=== PATIENT | male | born 1960 | race Caucasian/White ===

== ENCOUNTER → 2016-12-28 | Outpatient (REF) | payer OTHER | LOC: M LAB REF 16:15 | PROVIDERS: ATTEND Nurse Practitioner Adult Health | DX: R10.2 Pelvic and perineal pain (principal) ==

== ENCOUNTER → 2017-01-28 | Outpatient (REF) | payer OTHER | LOC: M LAB REF 12:37 | PROVIDERS: ATTEND Nurse Practitioner Adult Health | DX: R10.2 Pelvic and perineal pain (principal) ==

== ENCOUNTER → 2017-01-28 | Outpatient (REF) | payer OTHER ==
[2017-01-28 14:08] LABS: BASO % 0.2 % (0.0-1.0); EOS # 0.1 10^3/uL (0.0-0.50); EOS % 2.7 % (0.0-3.0); IMMATURE GRANULOCYTE % 0.2 % (0-0); LYMPH # 0.9 10^3/uL (1.5-4.5); LYMPH % 16.8 % (24.0-44.0); MEAN CORPUSCULAR HGB CONC 35.3 g/dl (32.0-36.5); MONO # 0.6 10^3/uL (0.0-0.8); MONO % 11.7 % (0.0-5.0); NEUTROPHILS # 3.6 10^3/uL (1.8-7.7); NEUTROPHILS % 68.4 % (36.0-66.0); PLATELET COUNT, AUTOMATED 206 10^3/uL (150-450); RED CELL DISTRIBUTION WIDTH 11.9 % (11.5-14.5); WHITE BLOOD COUNT 5.2 10^3/uL (4.0-10.0)
[2017-01-28 14:26] LABS: ALBUMIN 3.9 GM/DL (3.2-5.2); ALBUMIN/GLOBULIN RATIO 1.34 (1.00-1.93); ALKALINE PHOSPHATASE 83 U/L (45-117); ALT/SGPT 32 U/L (12-78); ANION GAP 8 MEQ/L (8-16); AST/SGOT 20 U/L (7-37); BILIRUBIN,TOTAL 0.6 MG/DL (0.2-1.0); BLOOD UREA NITROGEN 21 MG/DL (7-18); CALCIUM LEVEL 8.6 MG/DL (8.5-10.1); CARBON DIOXIDE LEVEL 26 MEQ/L (21-32); CHLORIDE LEVEL 107 MEQ/L (98-107); CHOLESTEROL LEVEL 177 MG/DL (<200); CREATININE FOR GFR 1.07 MG/DL (0.70-1.30); GLOMERULAR FILTRATION RATE > 60.0 (>56); GLUCOSE, FASTING 121 MG/DL (70-105); POTASSIUM SERUM 4.1 MEQ/L (3.5-5.1); SODIUM LEVEL 141 MEQ/L (136-145); TOTAL PROTEIN 6.8 GM/DL (6.4-8.2); TRIGLYCERIDES LEVEL 59 MG/DL (<150)
== END ==
LOC: M LAB REF 13:58
PROVIDERS: ATTEND Nurse Practitioner Adult Health
DX: Z13.9 Encounter for screening, unspecified (principal)

== ENCOUNTER → 2017-02-04 | Outpatient (REF) | payer OTHER | LOC: M LAB REF 13:16 | PROVIDERS: ATTEND Family Medicine Addiction Medicine | DX: R10.2 Pelvic and perineal pain (principal) ==

== ENCOUNTER → 2017-04-29 | Outpatient (REF) | payer OTHER ==
[2017-04-29 21:31] LABS: CHLAMYDIA DNA AMPLIFICATION NEGATIVE (NEGATIVE); GC DNA AMPLIFICATION NEGATIVE (NEGATIVE)
== END ==
LOC: M LAB REF 17:07
DX: N40.1 Benign prostatic hyperplasia with lower urinary tract symptoms (principal)

== ENCOUNTER → 2017-05-21 | Outpatient (REF) | payer OTHER ==
[2017-05-21 13:34] LABS: APPEARANCE, URINE CLEAR (CLEAR); BACTERIA, URINE AUTO NEGATIVE (NEGATIVE); BILIRUBIN, URINE AUTO NEGATIVE (NEGATIVE); BLOOD, URINE BLOOD NEGATIVE (NEGATIVE); COLOR, URINE YELLOW (YELLOW); GLUCOSE, URINE (UA) AUTO NEGATIVE (NEGATIVE); KETONE, URINE AUTO NEGATIVE (NEGATIVE); LEUKOCYTE ESTERASE, URINE AUTO NEGATIVE (NEGATIVE); MUCUS, URINE SMALL (NEGATIVE); NITRITE, URINE AUTO NEGATIVE (NEGATIVE); PROTEIN, URINE AUTO NEGATIVE (NEGATIVE); RBC, URINE AUTO 0 /HPF (0-3); SPECIFIC GRAVITY URINE AUTO 1.013 (1.002-1.035); SQUAMOUS EPITHELIAL CELL UR AU 0 /HPF (0-6); UROBILINOGEN, URINE AUTO 0.2 mg/dL (0.0-2.0); WBC, URINE AUTO 0 /HPF (0-3)
== END ==
LOC: M SMT 13:14
DX: R35.0 Frequency of micturition (principal)

== ENCOUNTER → 2019-06-13 | Outpatient (CLI) | payer OTHER ==
--- NOTE | 2019-06-15 14:48 | SLEEPHOME ---
DATE OF PROCEDURE: 06/13/2019 ORDERING PROVIDER: Dr. Forbes, copy to Vin Schmidt. INTERPRETATION: Diagnostic home sleep testing was performed due to concern for the obstructive sleep apnea syndrome. 9 hours and 59 minutes of data were reviewed. There were 5 hours and 54 minutes marked as time in bed. During the interval marked time in bed, there were 58 respiratory events identified of 10 seconds in duration or greater for respiratory event index of 9.8. The events were both central and obstructive. 26 of 58 events were central or mixed in character. Baseline pulse rate 60 beats per minute, pulse rate ranged 51-82. Baseline saturation 94%. Saturations fell to 88%. IMPRESSION: Abnormal diagnostic home sleep testing with repetitive respiratory events. Oxygen desaturations to 88% and respiratory event index of 9.8 is consistent with the obstructive sleep apnea syndrome. Concern is raised over the possibility of central sleep apnea given the frequency of mixed and central events seen. RECOMMENDATIONS: The patient should be encouraged to undergo formal sleep evaluation and in-laboratory testing.
== END ==
LOC: M SLEEP HO 10:52
PROVIDERS: ATTEND Internal Medicine Pulmonary Disease
DX: G47.33 Obstructive sleep apnea (adult) (pediatric) (principal)

== ENCOUNTER → 2019-07-05 | Outpatient (CLI) | payer OTHER ==
--- NOTE | 2019-07-06 16:25 | SLEEPCENT ---
DATE OF PROCEDURE: 07/05/2019 ORDERED BY: Kit Forbes DO Nocturnal polysomnography was performed for the titration of pressure therapy in this patient with obstructive sleep apnea syndrome on clinical grounds supported by home test revealing a respiratory event index of 9.8. Significant recurrence of central apneas was appreciated during his diagnostic home study. For testing a ResMed Quattro full-face mask of medium size was used; 4 cm of water pressure was applied to the circuit and the lights were extinguished. 8 hours and 23 minutes of data were reviewed. There were 349 minutes of sleep identified. Sleep latency was mildly prolonged at 40.5 minutes. Rapid eye movement (REM) latency was prolonged at 144 minutes. Sleep architecture improved with optimal pressure therapy. There were 3 REM cycles noted. Overall sleep efficiency was 70.2%. A minor reduction in REM time was appreciated. N3 sleep was elevated. The electrocardiogram showed a sinus rhythm with an average heart rate of 60 beats per minute. Rate ranged 46-90. Electroencephalogram (EEG) showed essentially normal waveforms for awake and sleep stages. No focal events were identified. Persistence of respiratory events prompted an increase in CPAP pressure from 4 to 10. Some emergence of central apnea was appreciated at higher pressures. Best sleep was seen with a CPAP pressure of 8, with which the patient slept through REM without respiratory event or oxygen desaturation. There was some limb activity noted early in the study. Limb movement arousals occurred only 2.1 times per hour. IMPRESSION: Obstructive sleep apnea syndrome (G47.33). RECOMMENDATIONS: Nightly use of pressure therapy 8 cm of water.
== END ==
LOC: M SLEEP 20:00
PROVIDERS: ATTEND Internal Medicine Pulmonary Disease
DX: G47.33 Obstructive sleep apnea (adult) (pediatric) (principal)

== ENCOUNTER → 2020-03-13 | Outpatient (CLI) | payer SELFPAY | LOC: M LABSMTC 13:43 | PROVIDERS: ATTEND Pediatrics | DX: Z11.59 Encounter for screening for other viral diseases (principal) ==

== ENCOUNTER → 2021-08-07 | Outpatient (CLI) | payer OTHER | LOC: M WUC 13:11 | DX: Z12.5 Encounter for screening for malignant neoplasm of prostate (principal) ==

== ENCOUNTER → 2021-11-17 | Outpatient (CLI) | payer OTHER | LOC: M WUC 08:45 | PROVIDERS: ATTEND Urology | DX: R97.20 Elevated prostate specific antigen [PSA] (principal) ==

== ENCOUNTER → 2024-02-24 | Outpatient (REF) | payer OTHER | LOC: M LAB REF 13:00 | PROVIDERS: ATTEND Family Medicine Addiction Medicine | DX: Z12.5 Encounter for screening for malignant neoplasm of prostate (principal) ==